=== PATIENT | male | born 1970 | race Caucasian/White ===

== ENCOUNTER 2016-12-27 16:46 | Emergency (ER) | payer BC ==
[~2016-12-27] VITALS: Ht 172.7 cm; Wt 100.9 kg
[~2016-12-27 16:46] MED LIST: ADVAIR 100/501 DISK IH; FLUOXETINE HCL20 MG PO; LANSOPRAZOLE30 MG PO; MONTELUKAST SOD10 MG PO; TRAZODONE HCL50 MG PO
[2016-12-27 18:21] VITALS: BP 107/62
== END 2016-12-27 18:24 | disposition home or self-care (01) ==
LOC: EME 16:46
DX: T18.128A Food in esophagus causing other injury, initial encounter (principal)
CPT/HCPCS: 99281; 99284